=== PATIENT | female | born 1995 | race Caucasian/White ===

== ENCOUNTER 2017-12-15 10:51 | Day surgery (SDC) | payer BC, OTHER ==
[~2017-12-15 10:51] MED LIST: CEFAZOLIN SODIUM 2 GM in NORMAL SALINE 100 ML IV PRN; GLYCOPYRROLATE INJ 0.4 MG/2 ML VIAL ONE; SUCCINYLCHOLINE CHLORIDE INJ 200 MG/10 ML VIAL ONE
[2017-12-15] MEDS ORDERED: BUPIVACAINE HCL 0.5 % INJ/PF 30 ML SDV ONE (13:38)
[2017-12-15] MEDS ORDERED: MIDAZOLAM 2 MG/2 ML INJ ONE (13:53)
[2017-12-15] MEDS ORDERED: FENTANYL CITRATE INJ/PF 100 MCG/2 ML AMPUL ONE (13:53)
[2017-12-15] MEDS ORDERED: PROPOFOL INJ 200 MG/20 ML VIAL IV ONE (13:53)
[2017-12-15] MEDS ORDERED: FENTANYL CITRATE INJ/PF 100 MCG/2 ML AMPUL IV PRN ×3 (14:29)
[2017-12-15] MEDS ORDERED: OXYCODONE-ACETAMINOPHEN 5-325 MG TABLET PO PRN ×3 (14:29→15:23)
[2017-12-15] MEDS ORDERED: DIPHENHYDRAMINE HCL 50 MG/ML VIAL IV PRN (14:29)
[2017-12-15] MEDS ORDERED: MEPERIDINE HCL/PF INJ 25 MG/1 ML DISP.SYRIN IV PRN (14:29)
[2017-12-15] MEDS ORDERED: PROMETHAZINE HCL INJ 25 MG/1 ML VIAL IV PRN ×2 (14:29)
[2017-12-15] MEDS ORDERED: ONDANSETRON HCL INJ/PF 4 MG/2 ML SDV IV PRN (15:23)
[2017-12-15] MEDS ORDERED: MORPHINE SULFATE 10 MG/ML INJ IV PRN (15:23)
--- NOTE | 2017-12-15 15:23 | Operative Report ---
Operative Report DATE OF SURGERY: 12/15/17 PREOPERATIVE DIAGNOSIS: Left 4th/5th Metacarpal Fracture POSTOPERATIVE DIAGNOSIS: Same OPERATION: 1. ORIF Left 4th Metacarpal Shaft Fracture. 2. CRPP Left 5th Metacarpal Neck Fracture SURGEON: CLOVIS MAGAÑA TOBACCO WEIGHER: MCKINLEY HORTA - Required for fracture reduction and retractor placement. ANESTHESIA: GA COMPLICATIONS: None ESTIMATED BLOOD LOSS: Minimal PROCEDURE: Indication for above procedure: 22-year-old female who sustained an injury to her left hand after punching a wall. Patient was seen at an outside facility was found to have fourth and fifth metacarpal fractures and was placed in a splint. Upon follow-up she with me we discussed treatment options including operative versus nonoperative intervention. Given the displaced nature and multiple metacarpal involvement decision was made to proceed with operative intervention. Procedure In Detail: Patient was seen and evaluated in the preoperative holding area. The LEFT upper extremity was initialized and marked. Patient received 2g of Ancef IV for bacterial prophylaxis. Patient was taken back to the operative room where transferred to the operative table and placed under general anesthesia. Once they were adequately anesthetized a nonsterile tourniquet was placed on the upper extremity. A surgical team debriefing was performed ensuring all instrumentation was available, the surgical procedure was discussed with possible concerns reviewed. The upper extremity was prepped with chlorhexidine and alcohol and draped in a sterile fashion. A timeout was done identifying correct patient, procedure and extremity everyone in attendance agree with this and verbalized no concerns. The extremity was exsanguinated the tourniquet was inflated to 250 mmHg. Longitudinal skin incision was made along the fourth metacarpal proximally. Blunt dissection was performed. The EDC tendons were identified and retracted. The dorsal interossei was incised exposing the fracture site. Fracture hematoma was then irrigated and the oblique fracture was anatomically reduced under direct visualization. I then proceeded with fixation. A 1.7 interfragmentary screw was placed distally further providing fracture stability and compression. I then placed a second 1.7 interfragmentary screw proximally perpendicular to the fracture site once again providing stability. C-arm fluoroscopy was obtained confirming yarsani of alignment. Patient had no evidence of malrotation with tenodesis. There was good fracture stability with manipulation. I then turned my attention to the fifth metacarpal neck. With a Jahss maneuver the fifth metacarpal neck was reduced within acceptable confines. I then proceeded with percutaneous fixation a 0.045 K wire was placed within the metacarpal recess and to the metacarpal shaft. A second 0.045 K wire was placed on the radial metacarpal recess. Manipulation of the fifth metacarpal demonstrated adequate stability with no evidence of micromotion. Patient had no evidence of malrotation with tenodesis and forearm squeeze. C-arm fluoroscopy was obtained demonstrating acceptable alignment and placement of hardware. The incision was copiously irrigated with normal saline. Skin was closed with a subcuticular 4-0 Monocryl reinforced with Dermabond and Steri-Strips. 10 cc of 0.5% Marcaine without epinephrine was injected for postoperative pain control. Patient was placed in a ulnar gutter splint maintaining the intrinsic plus position. Tourniquet was deflated. Patient had good peripheral perfusion. Sponge counts, instrument counts, needle counts counts were correct. Patient was then awoken from anesthesia. Transferred from the operating room table to the operating room stretcher. There was no intraoperative complications patient tolerated procedure well stable to PACU. Postoperative plan: Patient will follow-up the office in 2 weeks. At which point we will obtain radiographs. Patient will be placed in a wrist brace and begin gentle range of motion but no lifting.
[2017-12-15] MEDS: FENTANYL CITRATE INJ/PF 100 MCG/2 ML AMPUL ONE ×2 (16:00→16:10)
--- NOTE | 2017-12-15 16:05 | RADIOLOGY REPORT (SQ) ---
EXAM DESCRIPTION: NO CHG FLUORO; WRIST LEFT 2 VIEWS COMPLETED DATE/TIME: 12/15/2017 3:40 pm REASON FOR STUDY: LT WRIST ORIF; LT WRIST COMPARISON: None. FLUOROSCOPY TIME: 36 seconds 7 Images saved to PACS LIMITATIONS: None. PROCEDURE: ORIF left wrist. FINDINGS: Images obtained with fluoro document the procedure. IMPRESSION: ORIF left wrist. Consult operative note for further information. COMMENT: PQRS 6045F: Fluoroscopy time of the procedure is documented in the report. TECHNICAL DOCUMENTATION: JOB ID: [id number] [employer]- All Rights Reserved Reading location - IP/workstation name: [email or web address]
--- NOTE | 2017-12-15 16:05 | RADIOLOGY REPORT (SQ) ---
EXAM DESCRIPTION: NO CHG FLUORO; WRIST LEFT 2 VIEWS COMPLETED DATE/TIME: 12/15/2017 3:40 pm REASON FOR STUDY: LT WRIST ORIF; LT WRIST COMPARISON: None. FLUOROSCOPY TIME: 36 seconds 7 Images saved to PACS LIMITATIONS: None. PROCEDURE: ORIF left wrist. FINDINGS: Images obtained with fluoro document the procedure. IMPRESSION: ORIF left wrist. Consult operative note for further information. COMMENT: PQRS 6045F: Fluoroscopy time of the procedure is documented in the report. TECHNICAL DOCUMENTATION: JOB ID: [id number] [employer]- All Rights Reserved Reading location - IP/workstation name: [email or web address]
[2017-12-15 19:22] VITALS: BP 112/68
== END 2017-12-15 17:55 | disposition home or self-care (01) ==
LOC: OROUT 10:51
PROVIDERS: ATTEND Orthopaedic Surgery
PROC: 0PSQ34Z Reposition Left Metacarpal with Internal Fixation Device, Percutaneous Approach (ICD-10-PCS; 2017-12-15)
PROC: 0PSQ04Z Reposition Left Metacarpal with Internal Fixation Device, Open Approach (ICD-10-PCS; principal; 2017-12-15 13:00)
DX: S62.307A Unspecified fracture of fifth metacarpal bone, left hand, initial encounter for closed fracture (principal); S62.324A Displaced fracture of shaft of fourth metacarpal bone, right hand, initial encounter for closed fracture; W22.09XA Striking against other stationary object, initial encounter; F17.210 Nicotine dependence, cigarettes, uncomplicated; J45.909 Unspecified asthma, uncomplicated; E66.9 Obesity, unspecified; Z68.42 Body mass index [BMI] 45.0-49.9, adult
CPT/HCPCS: 81025; 73100; 26615; 26608; C1769; J2250; J3490; J0690; J3010; J0330; J2704; 01830

== ENCOUNTER → 2020-02-27 | Outpatient (CLI) | payer BC ==
[2020-02-27 13:26] LABS: ABSOLUTE BASOPHILS # (AUTO) 0.1 10^3/uL (0.0-0.2); ABSOLUTE EOSINOPHILS # (AUTO) 0.2 10^3/uL (0.0-0.6); ABSOLUTE LYMPHOCYTES (AUTO) 3.6 10^3/uL (0.5-4.7); ABSOLUTE MONOCYTES (AUTO) 0.6 10^3/uL (0.1-1.4); ABSOLUTE NEUT (AUTO) 4.8 10^3/uL (1.7-8.2); BASOPHILS % (AUTO) 0.9 % (0-2); EOSINOPHILS % (AUTO) 1.7 % (0-6); HEMATOCRIT 41.4 % (36.0-47.0); HEMOGLOBIN 14.4 g/dL (12.0-15.5); LYMPHOCYTES % (AUTO) 38.8 % (13-45); MEAN CORPUSCULAR HEMOGLOBIN 28.5 pg (27.0-33.4); MEAN CORPUSCULAR HGB CONC 34.8 g/dL (32.0-36.0); MEAN CORPUSCULAR VOLUME 82 fl (80-97); MONOCYTES % (AUTO) 6.9 % (3-13); PLATELET COUNT 377 10^3/uL (150-450); RED BLOOD COUNT 5.06 10^6/uL (3.72-5.28); RED CELL DISTRIBUTION WIDTH 13.1 % (11.5-14.0); SEGMENTED NEUTROPHILS % (AUTO) 51.7 % (42-78); TOTAL CELLS COUNTED % (AUTO) 100 %; WHITE BLOOD COUNT 9.3 10^3/uL (4.0-10.5)
[2020-02-27 13:41] LABS: ALBUMIN 4.8 g/dL (3.5-5.0); ALKALINE PHOSPHATASE 99 U/L (38-126); ANION GAP 7 (5-19); ASPARTATE AMINO TRANSFERASE 26 U/L (14-36); BILIRUBIN,TOTAL 0.5 mg/dL (0.2-1.3); BLOOD UREA NITROGEN 13 mg/dL (7-20); CALCIUM 10.4 mg/dL (8.4-10.2); CARBON DIOXIDE 26 mmol/L (22-30); CHLORIDE 105 mmol/L (98-107); CHOLESTEROL 218.53 mg/dL (0-200); GLUCOSE 96 mg/dL (75-110); POTASSIUM 4.6 mmol/L (3.6-5.0); TOTAL PROTEIN 8.5 g/dL (6.3-8.2); TRIGLYCERIDES 334 mg/dL (<150)
[2020-02-27 13:52] LABS: DIRECT LDL 118 mg/dL (<100)
[2020-02-27 13:55] LABS: LITHIUM < 0.2 mEq/L (0.6-1.2); VLDL CHOLESTEROL 66.8 mg/dL (10-31)
[2020-02-27 13:57] LABS: FREE T4 (FREE THYROXINE) 1.05 ng/dL (0.78-2.19)
[2020-02-27 14:11] LABS: THYROID STIMULATING HORMONE 1.67 uIU/mL (0.47-4.68)
== END ==
LOC: OD 11:45
PROVIDERS: ATTEND Nurse Practitioner Psychiatric/Mental Health
DX: F43.10 Post-traumatic stress disorder, unspecified (principal)
CPT/HCPCS: 36415; 80053; 80061; 80178; 84439; 84443; 85025